=== PATIENT | female | born 1995 | race African-American/Black ===

== ENCOUNTER 2019-06-03 21:59 | Emergency (ER) | payer OTHER ==
--- NOTE | 2019-06-03 22:33 | RAD ---
Right hand 3 views: 06/03/2019 COMPARISON: None HISTORY: Injury, trauma, pain FINDINGS: Soft tissue swelling and skin irregularity is noted along the medial aspect of the fifth pr oximal interphalangeal joint suggesting laceration. No associated fracture/dislocation or radiopaque foreign body. IMPRESSION: Soft tissue injury along the medial aspect of the fifth finger at the level of the proxim al interphalangeal joint.
== END 2019-06-04 00:09 | disposition left against medical advice (07) ==
LOC: ERS 21:59
DX: Z53.21 Procedure and treatment not carried out due to patient leaving prior to being seen by health care provider (principal)

== ENCOUNTER 2019-08-22 17:20 | Emergency (ER) | payer BC ==
[2019-08-22 19:42] LABS: #Basophils 0.1 thou/uL (0.0-0.2); #Eosinphils 0.1 thou/uL (0.0-0.7); #Lymphocytes 3.9 thou/uL (1.20-3.40); #Monocytes 0.7 thou/uL (0.11-0.59); #Neutrophils 8.1 thou/uL (1.40-6.50); %Basophils 0.7 % (0.0-1.0); %Eosinophils 0.9 % (0.0-10.0); %Lymphocytes 30.4 % (21.0-51.0); %Monocytes 5.3 % (0.0-10.0); %Neutrophils 62.7 % (42.0-75.0); Hemoglobin 12.5 g/dL (12.0-16.0); Mean Corpuscular HGB CONC 34.3 g/dL (32.0-36.0); Mean Corpuscular Hemoglobin 29.2 pg (27.0-31.0); Mean Corpuscular Volume 85.2 fL (78.0-98.0); Mean Platelet Volume 7.3 fL (7.4-10.4); Platelet Count 341 thou/uL (130-400); RBC Distribution Width 14.4 % (11.5-14.5); Red Blood Cell (RBC) Count 4.28 mill/uL (4.20-5.40); White Blood Cell (WBC) Count 12.8 thou/uL (4.8-10.8)
[2019-08-22 20:05] LABS: ALT (SGPT) Less than 7 U/L (8-55); AST (SGOT) 13 U/L (5-34); Albumin 4.3 g/dL (3.5-5.0); Alkaline Phosphatase 63 U/L (40-110); Anion Gap 12 mmol/L (10-20); BUN (Urea Nitrogen) 7 mg/dL (7.0-18.7); Bilirubin, Total 0.5 mg/dL (0.2-1.2); Calc. Creatinine Clearance 0 mL/min (70-130); Calcium 9.2 mg/dL (7.8-10.44); Carbon Dioxide 23 mmol/L (22-29); Chloride 105 mmol/L (98-107); Estimated GFR-MDRD Greater than 90; Globulin 3.7 g/dL (2.4-3.5); Glucose 84 mg/dL (70-105); Potassium 3.1 mmol/L (3.5-5.1); Sodium 137 mmol/L (136-145)
--- NOTE | 2019-08-22 20:33 | ULT ---
ULTRASOUND PELVIS WITH DOPPLER: History: Pelvis pain. Comparison: None FINDINGS: Real-time grayscale, color doppler, and spectral analysis of the pelvis was performed via transabdomi nal approach. A normal single viable intrauterine . The placenta is posterior. heart rate is doc[place] glen at 160 beats/minute. Ovaries are not well visualized. The position is transverse. Normal volume amniotic fluid. Silex-rump length is 5.66 cm, 12 weeks 2 day with estimated date of del luda 03-03-2020. IMPRESSION: 1. Normal single viable intrauterine . 2. Non-visualization of the ovaries. POS: HOME
[2019-08-22 20:54] LABS: Bilirubin Negative (Negative); Blood, Urine Negative (Negative); Clarity Clear (Clear); Glucose, Urine (Dipstick) Normal (Negative); Leukocyte Negative Leu/uL (Negative); Nitrite Negative (Negative); Protein, Urine (Dipstick) Negative (Neg-Trace); Urobilinogen Normal mg/dL (Less than 2)
[2019-08-22 20:55] LABS: Pregnancy Test - Urine (BHCG) POSITIVE (Negative); Pregu Control Background? CLEAR/WHITE (CLR/WHITE); Pregu Control Bar Appear? YES (CONTROL BAR); Specific Gravity 1.006 (1.002-1.036)
[2019-08-23 20:43] LABS: Chlamydia by PCR Not Detected (NotDetected); GC by PCR Not Detected (NotDetected)
== END 2019-08-22 20:45 | disposition home or self-care (01) ==
LOC: ERS 17:20
DX: O23.591 Infection of other part of genital tract in pregnancy, first trimester (principal); B96.89 Other specified bacterial agents as the cause of diseases classified elsewhere; Z3A.13 13 weeks gestation of pregnancy
CPT/HCPCS: 36415; 76856; 80053; 81003; 81025; 84702; 85025; 86900; 86901; 87480; 87491; 87510; 87591; 87660; 93976

== ENCOUNTER 2019-12-02 00:33 | Inpatient (IN) | payer BC, OTHER ==
[2019-12-02] MEDS ORDERED: Diphenoxylate HCl/Atropine Tablet PO PRN ×2 (01:04)
[2019-12-02] MEDS ORDERED: Lidocaine 1% (PF) 30 ML VIAL SC PRN (01:04)
[2019-12-02] MEDS ORDERED: Zolpidem Tartrate 5 MG TAB PO PRN (01:04)
[2019-12-02] MEDS ORDERED: Ondansetron PF 4 MG/2 ML Vial IVP PRN (01:04)
[2019-12-02] MEDS ORDERED: Carboprost 250 MCG/ML AMP IM PRN (01:04)
[2019-12-02] MEDS ORDERED: Misoprostol 200 MCG TAB PR PRN (01:04)
[2019-12-02] MEDS ORDERED: Promethazine HCl 25 MG/ML VIAL IM PRN (01:04)
[2019-12-02] MEDS ORDERED: Ibuprofen 800 MG TAB PO PRN (01:04)
[2019-12-02] MEDS ORDERED: NS / Oxytocin 40 units/1000ml 1,000 ML IV PRN (01:04)
[2019-12-02] MEDS ORDERED: Methylergonovine 0.2 MG/ML VIAL IM PRN (01:04)
[2019-12-02] MEDS ORDERED: hydrALAZINE 20 MG/ML VIAL SLOW IVP PRN (01:04)
[2019-12-02] MEDS ORDERED: Acetaminophen 500 MG TAB PO PRN (01:04)
[2019-12-02] MEDS ORDERED: HYDROcodone/Acetaminophen 5/325 mg Tablet PO PRN ×2 (01:04)
[2019-12-02 01:34] VITALS: BP 132/85; TEMP 98.2; BMI 31.1
[2019-12-02] MEDS: Lactated Ringer's 1,000 ML IV SCH ×2 (02:00→08:44)
[2019-12-02] MEDS: Misoprostol 200 MCG TAB PO SCH ×3 (02:12→10:38)
[2019-12-02 02:33] LABS: Hemoglobin 10.5 g/dL (12.0-16.0); Mean Corpuscular HGB CONC 32.6 g/dL (32.0-36.0); Mean Corpuscular Hemoglobin 28.3 pg (27.0-31.0); Mean Corpuscular Volume 86.9 fL (78.0-98.0); Platelet Count 258 thou/uL (130-400); Red Blood Cell (RBC) Count 3.71 mill/uL (4.20-5.40); White Blood Cell (WBC) Count 11.1 thou/uL (4.8-10.8)
[2019-12-02 02:53] LABS: HBSAg Index 0.14 S/CO (0-0.99); Hep B Surf Ag Non-Reactive S/CO (NonReactive)
[2019-12-02 03:44] LABS: Syphilis Antibody Nonreactive (Nonreactive); Syphilis Antibody Index 0.05 S/CO (<1.00 Non-Reactive)
--- NOTE | 2019-12-02 07:54 | ULT ---
PRELIMINARY REPORT/[facility]/EMERGENCY AFTER HOURS PROCEDURE: EXAM: US Obstetrical, Complete >14 weeks. CLINICAL HISTORY: Patient seen by OB doctor today, confirm demise TECHNIQUE: Transabdominal imaging of the maternal pelvis and a > 14 week gestation with image documentation. COMPARISON: None provided. FINDINGS: FETUS: There is a single intrauterine gestation, estimated gestational age 28 weeks 0 days POSITION: position is breech. HEART RATE: The heart rate is absent PLACENTA: The placenta is located posterior. No sonographic evidence for previa or abruption. IMPRESSION: The findings are consistent with demise ELECTRONICALLY SIGNED BY: Casimiro Inman MD Dec 02, 2019 2:01:02 AM CDT This report is intended for review by the ordering physician only, in accordance of law. If you recei ve this report in error, please call [facility] at [phone]. FINAL REPORT EMERGENCY AFTER HOURS OB ULTRASOUND: I agree with the preliminary report provided by [facility]. There is oligohydramnios. There is overriding of the cranial sutures related to head shrinkage. No documentable heart tones are present. The placenta is posterior in location. The fetus is a in a breech presentation. POS:
[2019-12-02] MEDS: Butorphanol Tartrate 1 MG/ML VIAL SLOW IVP PRN ×2 (10:38→12:16)
[2019-12-02 12:45] LABS: SARS-CoV-2 MS2 Positive; SARS-CoV-2 N Gene Negative; SARS-CoV-2 S Gene Negative; SARS-CoV-2 by NAA Not Detected (NotDetected); SARS-CoV-2 orf1ab Negative
[2019-12-02] MEDS ORDERED: Fentanyl 4 mcg/Bup 0.1% Cadd 100 ML ONE (13:23)
[2019-12-02] MEDS ORDERED: Acetaminophen 500 MG TAB PO SCH (15:00)
== END 2019-12-02 21:30 | disposition home or self-care (01) | DRG 807 ==
LOC: L&D 00:33
PROVIDERS: ADMIT Obstetrics & Gynecology; ATTEND Obstetrics & Gynecology
PROC: 10E0XZZ Delivery of Products of Conception, External Approach (ICD-10-PCS; principal; 2019-12-02)
PROC: 3E0P7VZ Introduction of Hormone into Female Reproductive, Via Natural or Artificial Opening (ICD-10-PCS; 2019-12-02)
PROC: 10907ZC Drainage of Amniotic Fluid, Therapeutic from Products of Conception, Via Natural or Artificial Opening (ICD-10-PCS; 2019-12-02)
DX: O36.4XX0 Maternal care for intrauterine death, not applicable or unspecified (principal); Z37.1 Single stillbirth; Z3A.25 25 weeks gestation of pregnancy; Z20.828 Contact with and (suspected) exposure to other viral communicable diseases
CPT/HCPCS: 36415; 76816; 85027; 86780; 86850; 86900; 86901; 87340; 87635; J0595; J2405; U0003

== ENCOUNTER 2020-07-28 09:23 | Emergency (ER) | payer BC, OTHER ==
[2020-07-28 10:51] LABS: Bilirubin Negative (Negative); Blood, Urine Negative (Negative); Clarity Turbid (Clear); Glucose, Urine (Dipstick) Normal (Negative); Ketone, Urine Negative (Negative); Leukocyte Negative Leu/uL (Negative); Nitrite Negative (Negative); Protein, Urine (Dipstick) Negative (Neg-Trace); Urobilinogen Normal mg/dL (Less than 2)
[2020-07-28] MEDS ORDERED: Acetaminophen 500 MG TAB ONE (11:34)
== END 2020-07-28 11:37 | disposition home or self-care (01) ==
LOC: ERS 09:23
DX: O26.892 Other specified pregnancy related conditions, second trimester (principal); R10.30 Lower abdominal pain, unspecified
CPT/HCPCS: 81003; 87086

== ENCOUNTER 2020-12-05 07:03 | Emergency (ER) | payer BC, OTHER ==
[2020-12-05] MEDS ORDERED: Lidocaine 1% (PF) 30 ML VIAL ONE (07:39)
[2020-12-05] MEDS ORDERED: Boostrix 0.5 ML (Tdap) VIAL ONE (08:32)
[2020-12-05] MEDS ORDERED: Bacitracin 1 PK ONE (08:32)
== END 2020-12-05 09:44 | disposition short-term general hospital (02) ==
LOC: ERS 07:03
DX: O9A.213 Injury, poisoning and certain other consequences of external causes complicating pregnancy, third trimester (principal); S01.112A Laceration without foreign body of left eyelid and periocular area, initial encounter; O47.03 False labor before 37 completed weeks of gestation, third trimester; M79.605 Pain in left leg; Z23 Encounter for immunization; Z3A.36 36 weeks gestation of pregnancy; W18.30XA Fall on same level, unspecified, initial encounter
CPT/HCPCS: 12051; 90471; 90715; J2001

== ENCOUNTER 2023-12-17 12:41 | Emergency (ER) | payer OTHER, SELFPAY ==
[2023-12-17 13:30] LABS: Bilirubin Negative (Negative); Blood, Urine 3+ (Negative); CAUTI Indications for Culture Pelvic or flank pain; Clarity Clear (Clear); Glucose, Urine (Dipstick) Normal (Negative); Ketone, Urine Negative (Negative); Leukocyte Negative Leu/uL (Negative); Nitrite Negative (Negative); Protein, Urine (Dipstick) Negative (Neg-Trace); RBC/HPF Greater than 50 HPF (0-3); Specific Gravity, Urine 1.004 (1.002-1.036); Squamous Epithelial 0-3 HPF (0-3); Urobilinogen Normal mg/dL (Less than 2)
[2023-12-17 13:31] LABS: #Basophils 0.04 10x3/uL (0.0-0.2); %Basophils 0.4 % (0.0-1.0); %Eosinophils 0.7 % (0.0-10.0); %Lymphocytes 27.6 % (21.0-51.0); %Monocytes 4.8 % (0.0-10.0); %Neutrophils 66.2 % (42.0-75.0); Hematocrit 35.8 % (36.0-47.0); Hemoglobin 11.6 g/dL (12.0-16.0); Mean Corpuscular HGB CONC 32.4 g/dL (32.0-36.0); Mean Corpuscular Hemoglobin 28.4 pg (27.0-31.0); Mean Corpuscular Volume 87.5 fL (78.0-98.0); Mean Platelet Volume 9.1 fL (7.4-10.4); Platelet Count 424 10x3/uL (130-400); RBC Distribution Width 12.9 % (11.5-14.5); Red Blood Cell (RBC) Count 4.09 mill/uL (4.20-5.40)
[2023-12-17 13:31] LABS: Bacteria/HPF 1+ HPF (None Seen)
[2023-12-17 13:32] LABS: Urine Culture Reflex Yes Yes
[2023-12-17 13:43] LABS: BHCG - Serum Negative (NEGATIVE); Pregs Control Background? CLEAR/WHITE (CLR/WHITE); Pregs Control Bar Appear? YES (CONTROL BAR)
[2023-12-17 13:47] LABS: ALT (SGPT) 16 U/L (8-55); AST (SGOT) 15 U/L (5-34); Albumin 3.6 g/dL (3.5-5.0); Alkaline Phosphatase 80 U/L (40-110); Anion Gap 11 mmol/L (10-20); BUN (Urea Nitrogen) 9 mg/dL (7.0-18.7); Bilirubin, Total 0.3 mg/dL (0.2-1.2); Calc. Creatinine Clearance 0 mL/min (70-130); Calcium 9.3 mg/dL (7.8-10.44); Carbon Dioxide 23 mmol/L (22-29); Chloride 107 mmol/L (98-107); Estimated GFR 105; Globulin 4.2 g/dL (2.4-3.5); Glucose 95 mg/dL (70-105); Potassium 3.8 mmol/L (3.5-5.1); Protein, Total 7.8 g/dL (6.0-8.3); Sodium 137 mmol/L (136-145)
== END 2023-12-17 14:53 | disposition home or self-care (01) ==
LOC: ERS 12:41
DX: N92.6 Irregular menstruation, unspecified (principal); R10.9 Unspecified abdominal pain; E66.9 Obesity, unspecified
CPT/HCPCS: 36415; 80053; 81001; 84702; 84703; 85025; 86900; 86901; 87077; 87086; 87186; 99283